=== PATIENT | male | born 1945 | race Asian ===

== ENCOUNTER 2023-10-23 13:51 | Emergency (ER) | payer MEDICARE ==
[~2023-10-23] VITALS: Ht 162.6 cm; Wt 81.6 kg
[2023-10-23 13:57] VITALS: BP_SYST 130; PULSE 62; RESP 18; TEMP 97.5; O2SAT 98
[2023-10-23] MEDS ORDERED: predniSONE 20 MG TABLET PO ONE (14:15)
[2023-10-23] MEDS ORDERED: ACYCLOVIR 400 MG TABLET PO ONE (14:15)
[2023-10-23] MEDS ORDERED: PRED20TA PO (15:25)
[2023-10-23] MEDS ORDERED: ACYC400T19 PO (15:25)
[2023-10-23 15:39] VITALS: BP_SYST 122; RESP 18; TEMP 97.5; O2SAT 98
== END 2023-10-23 15:38 | disposition home or self-care (01) ==
LOC: SED 13:51
DX: G51.0 Bell's palsy (principal); I10 Essential (primary) hypertension; E11.9 Type 2 diabetes mellitus without complications
CPT/HCPCS: 99284; 70450; 93005; 76376; J7512